=== PATIENT | female | born 1935 | race Caucasian/White ===

== ENCOUNTER → 2017-06-01 | Outpatient (CLI) | payer MEDICARE, BC ==
[~2017-06-01] MED LIST: REGADENOSON 0.4 MG/5 ML DISP.SYRIN. IV ONE
--- NOTE | 2017-06-01 13:12 | PCVCIMAG ---
APPROVED REPORT Exam: Nuclear Stress Test Indication: Dyspnea, Near Syncope Patient Location: Out Patient Stress Nurse: Angelica Larose RN, Char Luna RN AL Tech:Wilmer Hurd NMTCB Ht: 5 ft 5 in Wt: 160 lbs BSA: 1.80 m2 HR: 70 bpm BP: 172/86 mmHg BMI: 26.6 Rhythm: SR, First degree AV Block Medical History Medical History: Age, Hyperlipidemia, HTN, Medications: ASA, Amlodipine-Benazepril, KCL, Triamterene-HCTZ, Zantac Allergies: Detrol LA Pretest Chest Pain Characteristics: No chest pain NM EXAM: Myocardial Perfusion REST/STRESS Imaging Protocol: Rest Tc-99m/Stress Tc-99m 1 day Resting Data Rest SPECT myocardial perfusion imaging was performed in supine position 45 minutes following the intravenous injection of 10.7 mCi of Tc-99m Sestamibi. Time of rest injection: 819 Date: 06/01/2017 Pharmacologic Stress Pharmacologic stress test was performed by injecting Regadenoson 0.4 mg IV push followed by the intravenous injection of 32.6 mCi of Tc-99m Sestamibi. Time of stress injection: 944 Date: 06/01/2017 The images were gated to evaluate regional wall motion and calculate left ventricular ejection fraction. Study Quality Study: Good Study Data Post stress, the left ventricular ejection was 75%.. SSS: 1 SRS: 8 SDS: 0 TID = 0.92. Perfusion No evidence of stress induced ischemia or prior myocardial infarction. Wall Motion Normal left ventricular size and function with no regional wall motion abnormalities. Nuclear Conclusion No evidence of stress induced ischemia or prior myocardial infarction. Normal left ventricular size and function with no regional wall motion abnormalities. Post stress, the left ventricular ejection was 75%.. No prior study available for comparison. Interpreted by: Vinod Fox MD Electronically Approved: 06/01/2017 12:00:25 Stress Test Details Stress Test: Pharmacologic stress was paired with low level exercise. HR Resting HR: 70 bpmMax Heart Rate (APMHR): 139 bpm Max HR Achieved: 100 bpmTarget HR (85% APMHR): 118 bpm % of APMHR: 71 Recovery HR: 71 bpm BP Resting BP: 172/86 mmHg Max BP: 124/60 mmHg ECG Resting ECG: Sinus Rhythm, 1st degree AV block Stress ECG: Sinus Rhythm ST Change: None Maximum ST Deviation: 0 mm Arrhythmia: VPC's Recovery ECG: Sinus Rhythm, 1st degree AV block Recovery ST Deviation: 0 mm Clinical Reason for Termination: Completed protocol Stress Symptoms: Low level exercise test stopped early d/t- Dyspnea, Exhaustion, Fatigue, Near Syncope Exercise duration: 2 min 26 sec Exercise capacity: 1.6 METs Symptoms resolved during recovery. Stress ECG Conclusion ECG: Non-ischemic Clinical: Non-ischemic <Conclusion> ECG: Non-ischemic Clinical: Non-ischemic
== END | disposition home or self-care (01) ==
LOC: PCVCIMAG 08:10
PROVIDERS: ATTEND Nuclear Medicine Nuclear Cardiology
DX: I44.0 Atrioventricular block, first degree (principal); I10 Essential (primary) hypertension; E78.5 Hyperlipidemia, unspecified; R55 Syncope and collapse; K52.9 Noninfective gastroenteritis and colitis, unspecified; Z79.82 Long term (current) use of aspirin; Z79.899 Other long term (current) drug therapy; Z88.8 Allergy status to other drugs, medicaments and biological substances
CPT/HCPCS: 78452; 93017; A9500; J2785